=== PATIENT | female | born 1970 | race Caucasian/White ===

== ENCOUNTER 2021-04-29 19:59 | Emergency (ER) | payer OTHER ==
[2021-04-29 20:53] LABS: HEMOGLOBIN 13.4 gm/dl (12.3-15.3); RED BLOOD COUNT 4.09 M/UL (4.00-5.10); WHITE BLOOD COUNT 5.9 K/UL (4.5-11.0)
[2021-04-29] MEDS ORDERED: CEFUROXIME500 MG PO (22:12)
== END 2021-04-29 22:47 | disposition home or self-care (01) ==
LOC: ER1 19:59
PROVIDERS: Preventive Medicine Occupational Medicine
DX: N39.0 Urinary tract infection, site not specified (principal); I10 Essential (primary) hypertension
CPT/HCPCS: 80053; 81001; 83690; 85025; 85652; 86140; 87086; 96374; 96375; 99284; J0696; J1170; J2405; Q9967